=== PATIENT | male | born 1950 | race Caucasian/White ===

== ENCOUNTER 2023-01-23 06:57 | Outpatient (OUT) | payer MEDICARE, OTHER, SELFPAY ==
--- NOTE | 2023-01-23 07:08 | US_ITS ---
The [address] [address] Patient Name: LAI CROOKS MRN: [id number] date: 1950 Sex: M Assigned Patient Location: [place] Current Patient Location: [place] Accession/Order Number: [id number] Exam Date: 01/23/2023 07:17 Report Date: 01/23/2023 10:22 At the request of: TOBI VILLAFANA Procedure: US renal BI EXAMINATION: US renal BI HISTORY: Decreased urination R34, Acute low back pain M54.5 COMPARISON: Ultrasound right upper quadrant 12/20/2019, CT abdomen pelvis 09/15/2019 TECHNIQUE: Ultrasound examination was performed of the kidneys and urinary bladder. FINDINGS: RIGHT KIDNEY: Contains a nonobstructing 3 mm stone in 2 benign-appearing cysts, largest is 3.0 cm. Normal renal cortical parenchymal echogenicity. Color Doppler demonstrates blood flow within the kidney. Kidney: 12.6 x 4.9 x 5.6 cm LEFT KIDNEY: Contains a nonobstructing 3 mm stone and a benign-appearing 1.0 cm cyst. Normal renal cortical parenchymal echogenicity. Color Doppler demonstrates blood flow within the kidney. Kidney: 12.7 x 5.0 x 5.2 cm BLADDER: No visible wall thickening, mass, or calculi. Slightly prominent prostate. IMPRESSION: 1. Bilateral nonobstructing nephrolithiasis. 2. No acute findings to account for patient's symptoms. Electronically authenticated by: ALEXA STRICKLAND Date: 01/23/2023 10:22
== END 2023-01-23 06:58 | disposition home or self-care (01) ==
LOC: US 07:02
PROVIDERS: PCP Family Medicine; Visit Provider Nurse Practitioner Family
DX: M54.50 Low back pain, unspecified (principal); R34 Anuria and oliguria; R97.20 Elevated prostate specific antigen [PSA]; N20.0 Calculus of kidney
CPT/HCPCS: 76775

== ENCOUNTER 2023-03-18 13:42 | Outpatient (OUT) | payer MEDICARE, OTHER, SELFPAY ==
--- NOTE | 2023-03-18 13:50 | XR_ITS ---
[address] [address] Patient Name: LAI CROOKS MRN: [id number] date: 1950 Sex: M Assigned Patient Location: [facility] Current Patient Location: [facility] Accession/Order Number: [id number] Exam Date: 03/18/2023 13:58 Report Date: 03/18/2023 14:31 At the request of: TOBI VILLAFANA Procedure: XR humerus RT PROCEDURE: XR humerus RT, XR shoulder RT min 2V HISTORY: Biceps Rupture S46.211A ; right shoulder pain for several weeks after lifting objects COMPARISON: None. FINDINGS: BONES:Narrowing of the acromioclavicular joints and undersurface osteophytes. Unremarkable humeral head and glenoid. No fracture, dislocation, bone lesion. SOFT TISSUES:No visible soft tissue swelling. EFFUSION:None visible. OTHER: Negative. XR/XR humerus RT IMPRESSION: 1. Degenerative changes of the acromioclavicular joint which would predispose to rotator cuff injury. 2. No acute bone abnormality. 3. No appreciable soft tissue abnormality. Electronically authenticated by: ALEXA STRICKLAND Date: 03/18/2023 14:31
--- NOTE | 2023-03-18 13:50 | XR_ITS ---
The [address] [address] Patient Name: LAI CROOKS MRN: [id number] date: 1950 Sex: M Assigned Patient Location: [facility] Current Patient Location: [facility] Accession/Order Number: [id number] Exam Date: 03/18/2023 13:58 Report Date: 03/18/2023 14:31 At the request of: TOBI VILLAFANA Procedure: XR shoulder RT min 2V PROCEDURE: XR humerus RT, XR shoulder RT min 2V HISTORY: Biceps Rupture S46.211A ; right shoulder pain for several weeks after lifting objects COMPARISON: None. FINDINGS: BONES:Narrowing of the acromioclavicular joints and undersurface osteophytes. Unremarkable humeral head and glenoid. No fracture, dislocation, bone lesion. SOFT TISSUES:No visible soft tissue swelling. EFFUSION:None visible. OTHER: Negative. XR/XR shoulder RT min 2V IMPRESSION: 1. Degenerative changes of the acromioclavicular joint which would predispose to rotator cuff injury. 2. No acute bone abnormality. 3. No appreciable soft tissue abnormality. Electronically authenticated by: ALEXA STRICKLAND Date: 03/18/2023 14:31
== END 2023-03-18 13:43 | disposition home or self-care (01) ==
LOC: RAD 13:45
PROVIDERS: PCP Family Medicine; Visit Provider Nurse Practitioner Family
DX: S46.211A Strain of muscle, fascia and tendon of other parts of biceps, right arm, initial encounter (principal); M25.511 Pain in right shoulder
CPT/HCPCS: 73030; 73060